=== PATIENT | male | born 1960 | race Hispanic/Latino ===

== ENCOUNTER → 2019-10-21 | Day surgery (SDC) | payer OTHER ==
[~2019-10-21] MED LIST: HYOSCYAMINE 0.125 MG TAB ONE; LISINOPRIL-HCT1 EACH PO; MULTI-VITAMIN1 EACH PO; SERTRALINE HCL50 MG PO; VITAMIN C500 M4 PO
[2019-10-21 12:30] VITALS: BP 114/75
--- NOTE | 2019-10-21 13:21 | Operative Report ---
DATE OF PROCEDURE: 10/21/2019 SURGEON: Kiko Karimi MD PROCEDURE: Colonoscopy with polypectomy. INDICATIONS FOR COLONOSCOPY: Colorectal cancer screening. MEDICATIONS: The patient was done under MAC, please see anesthesiologist's note. PROCEDURE IN DETAIL: With the patient in the left lateral decubitus position, the flexible fiberoptic Olympus colonoscope was inserted into the rectum with ease and advanced all the way to the cecum. The scope was then withdrawn slowly. Mucosa overlying the cecum, ascending colon, transverse colon, descending colon, and sigmoid appeared to be within normal limits. Approximately 4 mm sessile polyp was removed per hot biopsy forceps from the rectum. The scope was then retroflexed into the distal rectum and moderate-sized internal hemorrhoids were noted, none of which was actively bleeding. The scope was then straightened out, it was subsequently withdrawn, and the patient tolerated the procedure well. IMPRESSION: 1. Rectal polyp, hot biopsied. 2. Internal hemorrhoids, none actively bleeding. PLAN: Follow up histology. Initiate high-fiber, low-fat diet. Initiate high-fiber supplement. The patient might benefit from a followup colonoscopy in 5 years. Kiko Karimi MD [facility] [place] /[id number] cc: Dr. Libby Rodriguez
== END | disposition home or self-care (01) ==
LOC: OR 10:03
PROVIDERS: ATTEND Internal Medicine Gastroenterology
DX: Z12.11 Encounter for screening for malignant neoplasm of colon (principal); K62.1 Rectal polyp; K64.8 Other hemorrhoids; K92.1 Melena; I10 Essential (primary) hypertension; F17.210 Nicotine dependence, cigarettes, uncomplicated; Z01.810 Encounter for preprocedural cardiovascular examination; Z01.812 Encounter for preprocedural laboratory examination; Z11.59 Encounter for screening for other viral diseases; Z68.25 Body mass index [BMI] 25.0-25.9, adult
CPT/HCPCS: 45384; 87635; 93005